=== PATIENT | male | born 1995 | race Two or more races ===

== ENCOUNTER 2019-12-08 14:14 | Inpatient (IN) | payer OTHER ==
[~2019-12-08] VITALS: Ht 172.7 cm; Wt 69.4 kg
[2019-12-08 15:00] VITALS: BP 132/68
[2019-12-08] MEDS ORDERED: ACETAMINOPHEN 325 MG TABLET PO PRN (17:15)
[2019-12-08] MEDS ORDERED: SODIUM CL IRRIG SOLN BOTTLE 250 ML IRRIG ONE (17:16)
[2019-12-08] MEDS ORDERED: OxyCODONE HCL 5 MG IR TABLET PO PRN (17:45)
[2019-12-08] MEDS: BACITRACIN 28.4 GM OINTMENT TP SCH (18:20)
[2019-12-08] MEDS: CEPHALEXIN MONOHYDRATE 500 MG CAPSULE PO SCH (19:57)
[2019-12-08] MEDS: DOCUSATE SODIUM 100 MG CAPSULE PO SCH (19:57)
[2019-12-08] MEDS: OxyCODONE HCL 10 MG IR TABLET PO PRN (19:57)
[2019-12-08] MEDS: ENOXAPARIN SODIUM 40 MG/0.4 ML PF SYRINGE SQ SCH (19:57)
[2019-12-08] MEDS ORDERED: CEPHALEXIN MONOHYDRATE 500 MG CAPSULE PO SCH (21:00)
[2019-12-09 04:01] VITALS: BP 128/69
[2019-12-09 06:18] LABS: BASOPHILS % (AUTO) 0.6 % (0.0-2.0); HEMATOCRIT 42.7 % (41-53); LYMPHOCYTES # (AUTO) 1.8 K/uL (1.0-4.8); LYMPHOCYTES % (AUTO) 22.8 % (22.0-44.0); MEAN CORPUSCULAR HEMOGLOBIN 28.7 pg (26.0-34.0); MEAN CORPUSCULAR HGB CONC 35.1 G/dL (31.0-37.0); MEAN CORPUSCULAR VOLUME 82 fL (80-100); MONOCYTES # (AUTO) 0.8 K/uL (0.1-1.0); MONOCYTES % (AUTO) 9.8 % (2.0-9.0); NEUTROPHILS % (AUTO) 64.8 % (40.0-70.0); PLATELET COUNT (AUTO) 259 K/uL (150-450); RED BLOOD CELL COUNT(AUTO) 5.22 MIL/uL (4.50-5.90); RED CELL DISTRIBUTION WIDTH 12.8 % (11.5-14.5)
[2019-12-09 06:41] LABS: ALANINE AMINOTRANSFERASE 25 U/L (12-78); ALBUMIN 3.5 g/dL (3.4-5.0); ALKALINE PHOSPHATASE 64 U/L (46-116); ANION GAP 5 mmol/L (8-16); ASPARTATE AMINOTRANSFERASE 11 U/L (15-37); BILIRUBIN,TOTAL 0.7 mg/dL (0.1-1.0); CALCIUM, TOTAL 8.9 mg/dL (8.8-10.5); CARBON DIOXIDE 30 mmol/L (22-29); CHLORIDE 103 mmol/L (98-107); CREATININE 0.96 mg/dL (0.60-1.30); GLOMERULAR FILTR. RATE CALC > 60 mL/min (>60); GLUCOSE,RANDOM 87 mg/dL (70-110); POTASSIUM 4.2 mmol/L (3.5-5.1); SODIUM SERUM 138 mmol/L (136-145); TOTAL PROTEIN, SERUM 7.2 g/dL (6.4-8.2); UREA NITROGEN, BLOOD 12 mg/dL (7-18)
[2019-12-09 08:50] VITALS: BP 99/62
[2019-12-09] MEDS: ACETAMINOPHEN 325 MG TABLET PO PRN (08:58)
[2019-12-09] MEDS: ENOXAPARIN SODIUM 40 MG/0.4 ML PF SYRINGE SQ SCH ×2 (08:59→21:40)
[2019-12-09] MEDS: DOCUSATE SODIUM 100 MG CAPSULE PO SCH ×2 (08:59→21:40)
[2019-12-09] MEDS: BACITRACIN 28.4 GM OINTMENT TP SCH (08:59)
[2019-12-09] MEDS: CEPHALEXIN MONOHYDRATE 500 MG CAPSULE PO SCH ×4 (08:59→21:40)
[2019-12-09 15:00] VITALS: BP 129/61
[2019-12-09 23:00] VITALS: BP 110/64
[2019-12-10 07:30] VITALS: BP 124/62
[2019-12-10] MEDS: OxyCODONE HCL 10 MG IR TABLET PO PRN ×3 (07:30→17:20)
[2019-12-10] MEDS: ENOXAPARIN SODIUM 40 MG/0.4 ML PF SYRINGE SQ SCH ×2 (08:19→20:18)
[2019-12-10] MEDS: CEPHALEXIN MONOHYDRATE 500 MG CAPSULE PO SCH ×4 (08:19→20:17)
[2019-12-10] MEDS: BACITRACIN 28.4 GM OINTMENT TP SCH (08:20)
[2019-12-10] MEDS: DOCUSATE SODIUM 100 MG CAPSULE PO SCH ×2 (08:20→20:17)
[2019-12-10] MEDS: IBUPROFEN 800 MG TABLET PO PRN (12:54)
[2019-12-10 16:47] VITALS: BP 128/60
[2019-12-10] MEDS: OxyCODONE HCL 10 MG ER TABLET PO SCH (20:17)
[2019-12-10] MEDS: MELATONIN 5 MG TABLET PO PRN (20:23)
[2019-12-11] VITALS: BP 129/69
[2019-12-11] MEDS: OxyCODONE HCL 10 MG IR TABLET PO PRN ×3 (05:31→20:28)
[2019-12-11 07:15] VITALS: BP 116/70
[2019-12-11] MEDS: OxyCODONE HCL 10 MG ER TABLET PO SCH ×2 (07:54→19:49)
[2019-12-11] MEDS: DOCUSATE SODIUM 100 MG CAPSULE PO SCH ×2 (08:46→19:49)
[2019-12-11] MEDS: ENOXAPARIN SODIUM 40 MG/0.4 ML PF SYRINGE SQ SCH ×2 (08:46→19:50)
[2019-12-11] MEDS: CEPHALEXIN MONOHYDRATE 500 MG CAPSULE PO SCH ×4 (08:47→19:49)
[2019-12-11] MEDS: BACITRACIN 28.4 GM OINTMENT TP SCH (08:53)
[2019-12-11] MEDS: MULTIVITAMINS WITH MINERALS, THERAPEUTIC TABLET PO SCH (12:33)
[2019-12-11] MEDS: IBUPROFEN 800 MG TABLET PO PRN (12:37)
[2019-12-11 15:30] VITALS: BP 129/55
[2019-12-11] MEDS: MELATONIN 5 MG TABLET PO PRN (20:27)
[2019-12-11 23:00] VITALS: BP 124/67
[2019-12-12] MEDS: OxyCODONE HCL 10 MG IR TABLET PO PRN ×2 (04:52→10:05)
[2019-12-12] MEDS: OxyCODONE HCL 10 MG ER TABLET PO SCH ×2 (08:43→19:47)
[2019-12-12] MEDS: DOCUSATE SODIUM 100 MG CAPSULE PO SCH (08:43)
[2019-12-12] MEDS: MULTIVITAMINS WITH MINERALS, THERAPEUTIC TABLET PO SCH (08:43)
[2019-12-12] MEDS: CEPHALEXIN MONOHYDRATE 500 MG CAPSULE PO SCH ×4 (08:43→19:47)
[2019-12-12] MEDS: BACITRACIN 28.4 GM OINTMENT TP SCH (08:46)
[2019-12-12] MEDS: ENOXAPARIN SODIUM 40 MG/0.4 ML PF SYRINGE SQ SCH (08:46)
[2019-12-12 10:05] VITALS: BP 130/67
[2019-12-12] MEDS: IBUPROFEN 800 MG TABLET PO PRN ×2 (12:26→19:47)
[2019-12-12] MEDS: FAMOTIDINE 20 MG TABLET PO SCH (14:11)
[2019-12-12 15:36] VITALS: BP 128/65
[2019-12-12] MEDS: SENNA 187 MG TABLET PO SCH (16:55)
[2019-12-12] MEDS: IBUPROFEN 400 MG TABLET PO PRN (16:55)
[2019-12-12 23:24] VITALS: BP 124/60
[2019-12-13] MEDS: IBUPROFEN 400 MG TABLET PO PRN (03:22)
[2019-12-13] MEDS: FAMOTIDINE 20 MG TABLET PO SCH (08:34)
[2019-12-13] MEDS: IBUPROFEN 800 MG TABLET PO PRN ×2 (08:34→16:06)
[2019-12-13] MEDS: OxyCODONE HCL 10 MG ER TABLET PO SCH (08:35)
[2019-12-13] MEDS: ENOXAPARIN SODIUM 40 MG/0.4 ML PF SYRINGE SQ SCH (08:58)
[2019-12-13] MEDS: SENNA 187 MG TABLET PO SCH (08:58)
[2019-12-13] MEDS: DOCUSATE SODIUM 250 MG CAPSULE PO SCH (08:58)
[2019-12-13] MEDS: CEPHALEXIN MONOHYDRATE 500 MG CAPSULE PO SCH ×4 (08:59→21:12)
[2019-12-13] MEDS: MULTIVITAMINS WITH MINERALS, THERAPEUTIC TABLET PO SCH (08:59)
[2019-12-13] MEDS: OxyCODONE HCL 10 MG IR TABLET PO PRN ×2 (08:59→21:13)
[2019-12-13] MEDS: BACITRACIN 28.4 GM OINTMENT TP SCH (09:00)
[2019-12-13 16:06] VITALS: BP 118/64
[2019-12-13] MEDS ORDERED: ONDANSETRON HCL 4 MG TABLET PO PRN (16:45)
[2019-12-13] MEDS ORDERED: ONDANSETRON HCL 4 MG TABLET PO SCH (21:00)
[2019-12-13] MEDS: ACETAMINOPHEN 325 MG TABLET PO PRN (21:44)
[2019-12-14] VITALS: BP 122/57
[2019-12-14] MEDS: FAMOTIDINE 20 MG TABLET PO SCH (06:32)
[2019-12-14 07:59] VITALS: BP 149/85
[2019-12-14] MEDS: OxyCODONE HCL 10 MG IR TABLET PO PRN ×2 (07:59→21:49)
[2019-12-14] MEDS: SENNA 187 MG TABLET PO SCH (08:49)
[2019-12-14] MEDS: CEPHALEXIN MONOHYDRATE 500 MG CAPSULE PO SCH ×3 (08:49→16:17)
[2019-12-14] MEDS: ENOXAPARIN SODIUM 40 MG/0.4 ML PF SYRINGE SQ SCH (08:49)
[2019-12-14] MEDS: MULTIVITAMINS WITH MINERALS, THERAPEUTIC TABLET PO SCH (08:49)
[2019-12-14] MEDS: DOCUSATE SODIUM 250 MG CAPSULE PO SCH (08:49)
[2019-12-14] MEDS: BACITRACIN 28.4 GM OINTMENT TP SCH (08:55)
[2019-12-14] MEDS: IBUPROFEN 800 MG TABLET PO PRN (10:15)
[2019-12-14 17:32] VITALS: BP 100/52
[2019-12-15] VITALS: BP 128/80
[2019-12-15] MEDS: FAMOTIDINE 20 MG TABLET PO SCH (06:28)
[2019-12-15] MEDS: DOCUSATE SODIUM 250 MG CAPSULE PO SCH (08:17)
[2019-12-15] MEDS: MULTIVITAMINS WITH MINERALS, THERAPEUTIC TABLET PO SCH (08:17)
[2019-12-15] MEDS: ENOXAPARIN SODIUM 40 MG/0.4 ML PF SYRINGE SQ SCH (08:17)
[2019-12-15] MEDS: SENNA 187 MG TABLET PO SCH (08:17)
[2019-12-15 08:18] VITALS: BP 125/71
[2019-12-15] MEDS: OxyCODONE HCL 10 MG IR TABLET PO PRN (08:18)
[2019-12-15] MEDS: BACITRACIN 28.4 GM OINTMENT TP SCH (09:28)
[2019-12-15] MEDS: IBUPROFEN 800 MG TABLET PO PRN ×2 (10:44→21:49)
[2019-12-15 17:29] VITALS: BP 135/71
[2019-12-15] MEDS: ACETAMINOPHEN 325 MG TABLET PO PRN (19:13)
[2019-12-15 23:00] VITALS: BP 130/63
[2019-12-16] MEDS: FAMOTIDINE 20 MG TABLET PO SCH (07:00)
[2019-12-16 08:19] VITALS: BP 109/59
[2019-12-16] MEDS: IBUPROFEN 800 MG TABLET PO PRN (08:19)
[2019-12-16] MEDS: MULTIVITAMINS WITH MINERALS, THERAPEUTIC TABLET PO SCH (08:20)
[2019-12-16] MEDS: DOCUSATE SODIUM 250 MG CAPSULE PO SCH (08:20)
[2019-12-16] MEDS: SENNA 187 MG TABLET PO SCH (08:20)
[2019-12-16] MEDS: ENOXAPARIN SODIUM 40 MG/0.4 ML PF SYRINGE SQ SCH (08:21)
[2019-12-16] MEDS: BACITRACIN 28.4 GM OINTMENT TP SCH (08:39)
[2019-12-16 15:15] VITALS: BP 134/69
[2019-12-17] MEDS: DOCUSATE SODIUM 250 MG CAPSULE PO SCH (06:23)
[2019-12-17] MEDS: MULTIVITAMINS WITH MINERALS, THERAPEUTIC TABLET PO SCH (06:23)
[2019-12-17] MEDS: SENNA 187 MG TABLET PO SCH (06:23)
[2019-12-17] MEDS: ENOXAPARIN SODIUM 40 MG/0.4 ML PF SYRINGE SQ SCH (06:24)
[2019-12-17] MEDS: FAMOTIDINE 20 MG TABLET PO SCH (06:30)
[2019-12-17 06:31] VITALS: BP 105/51
[2019-12-17] MEDS: IBUPROFEN 800 MG TABLET PO PRN ×2 (06:44→19:26)
[2019-12-17] MEDS: BACITRACIN 28.4 GM OINTMENT TP SCH (09:39)
[2019-12-17 09:40] VITALS: BP 122/53
[2019-12-17] MEDS: ACETAMINOPHEN 325 MG TABLET PO PRN (09:49)
[2019-12-17 16:30] VITALS: BP 129/69
[2019-12-18] VITALS: BP 121/67
[2019-12-18] MEDS: FAMOTIDINE 20 MG TABLET PO SCH (07:00)
[2019-12-18] MEDS: MULTIVITAMINS WITH MINERALS, THERAPEUTIC TABLET PO SCH (09:37)
[2019-12-18] MEDS: SENNA 187 MG TABLET PO SCH (09:37)
[2019-12-18] MEDS: DOCUSATE SODIUM 250 MG CAPSULE PO SCH (09:37)
[2019-12-18] MEDS: ENOXAPARIN SODIUM 40 MG/0.4 ML PF SYRINGE SQ SCH (09:43)
[2019-12-18] MEDS: BACITRACIN 28.4 GM OINTMENT TP SCH (09:44)
[2019-12-18] MEDS: IBUPROFEN 800 MG TABLET PO PRN ×2 (09:51→19:51)
[2019-12-18 10:07] VITALS: BP 127/56
[2019-12-18 19:50] VITALS: BP 125/75
[2019-12-18 23:00] VITALS: BP 119/54
[2019-12-19] MEDS: FAMOTIDINE 20 MG TABLET PO SCH (07:00)
[2019-12-19 08:00] VITALS: BP 115/55
[2019-12-19] MEDS: SENNA 187 MG TABLET PO SCH (09:38)
[2019-12-19] MEDS: DOCUSATE SODIUM 250 MG CAPSULE PO SCH (09:38)
[2019-12-19] MEDS: MULTIVITAMINS WITH MINERALS, THERAPEUTIC TABLET PO SCH (09:38)
[2019-12-19] MEDS: ENOXAPARIN SODIUM 40 MG/0.4 ML PF SYRINGE SQ SCH (09:40)
[2019-12-19] MEDS: BACITRACIN 28.4 GM OINTMENT TP SCH (09:45)
[2019-12-19] MEDS: IBUPROFEN 800 MG TABLET PO PRN (10:12)
[2019-12-19 15:22] VITALS: BP 154/67
[2019-12-20 06:00] VITALS: BP 106/53
[2019-12-20] MEDS: FAMOTIDINE 20 MG TABLET PO SCH (06:29)
[2019-12-20] MEDS ORDERED: FAMOTIDINE 20 MG TABLET PO PRN (07:15)
[2019-12-20 07:30] VITALS: BP 112/64
[2019-12-20] MEDS: ENOXAPARIN SODIUM 40 MG/0.4 ML PF SYRINGE SQ SCH (09:57)
[2019-12-20] MEDS: DOCUSATE SODIUM 250 MG CAPSULE PO SCH (09:57)
[2019-12-20] MEDS: MULTIVITAMINS WITH MINERALS, THERAPEUTIC TABLET PO SCH (09:57)
[2019-12-20] MEDS: BACITRACIN 28.4 GM OINTMENT TP SCH (09:57)
[2019-12-20] MEDS: SENNA 187 MG TABLET PO SCH (09:57)
[2019-12-20] MEDS: ACETAMINOPHEN 325 MG TABLET PO PRN (10:04)
[2019-12-20 15:08] VITALS: BP 130/73
[2019-12-20] MEDS: IBUPROFEN 800 MG TABLET PO PRN (16:01)
[2019-12-20] MEDS ORDERED: IBUP-2071 PO (21:48)
[2019-12-20] MEDS ORDERED: MULT-248 PO (21:48)
[2019-12-20] MEDS ORDERED: DOCU-342 PO (21:48)
[2019-12-20] MEDS ORDERED: ASPI-1146 PO (21:48)
[2019-12-21] VITALS: BP 130/71
[2019-12-21 08:30] VITALS: BP 110/55
[2019-12-21] MEDS: ASPIRIN 325 MG TABLET PO SCH (09:35)
[2019-12-21] MEDS: SENNA 187 MG TABLET PO SCH (09:37)
[2019-12-21] MEDS: MULTIVITAMINS WITH MINERALS, THERAPEUTIC TABLET PO SCH (09:37)
[2019-12-21] MEDS: BACITRACIN 28.4 GM OINTMENT TP SCH (09:37)
[2019-12-21] MEDS: DOCUSATE SODIUM 250 MG CAPSULE PO SCH (09:37)
[2019-12-21] MEDS: ACETAMINOPHEN 325 MG TABLET PO PRN (09:51)
[2019-12-21 16:01] VITALS: BP 119/64
[2019-12-22 00:23] VITALS: BP 127/72
[2019-12-22 09:23] VITALS: BP 113/65
[2019-12-22] MEDS: IBUPROFEN 800 MG TABLET PO PRN ×2 (09:37→20:47)
[2019-12-22] MEDS: MULTIVITAMINS WITH MINERALS, THERAPEUTIC TABLET PO SCH (09:37)
[2019-12-22] MEDS: ASPIRIN 325 MG TABLET PO SCH (09:37)
[2019-12-22] MEDS: SENNA 187 MG TABLET PO SCH (09:37)
[2019-12-22] MEDS: DOCUSATE SODIUM 250 MG CAPSULE PO SCH (09:37)
[2019-12-22] MEDS: BACITRACIN 28.4 GM OINTMENT TP SCH (09:41)
[2019-12-22 19:09] VITALS: BP 126/69
[2019-12-22 23:16] VITALS: BP 120/59
[2019-12-23 08:15] VITALS: BP 130/77
[2019-12-23] MEDS: ASPIRIN 325 MG TABLET PO SCH (08:30)
[2019-12-23] MEDS: SENNA 187 MG TABLET PO SCH (08:37)
[2019-12-23] MEDS: DOCUSATE SODIUM 250 MG CAPSULE PO SCH (08:37)
[2019-12-23] MEDS: MULTIVITAMINS WITH MINERALS, THERAPEUTIC TABLET PO SCH (08:37)
[2019-12-23] MEDS: IBUPROFEN 800 MG TABLET PO PRN (10:25)
== END 2019-12-23 12:15 | disposition home or self-care (01) | DRG 563 ==
LOC: 2WR 14:17
DX: S42.002A Fracture of unspecified part of left clavicle, initial encounter for closed fracture (principal); S76.122A Laceration of left quadriceps muscle, fascia and tendon, initial encounter; S96.821A Laceration of other specified muscles and tendons at ankle and foot level, right foot, initial encounter; F43.21 Adjustment disorder with depressed mood; K59.03 Drug induced constipation; T40.2X5A Adverse effect of other opioids, initial encounter; V29.9XXA Motorcycle rider (driver) (passenger) injured in unspecified traffic accident, initial encounter; Y92.89 Other specified places as the place of occurrence of the external cause; Z79.82 Long term (current) use of aspirin; Z90.49 Acquired absence of other specified parts of digestive tract; V29.88XA Motorcycle rider (driver) (passenger) injured in other specified transport accidents, initial encounter; Y93.89 Activity, other specified; Y99.8 Other external cause status
CPT/HCPCS: 87081; 97110; 97112; 97116; 97140; 97150; 97163; 97165; 97530; 97535; 99366; J1650